=== PATIENT | female | born 1955 | race Caucasian/White ===

== ENCOUNTER 2020-07-22 08:35 | Day surgery (SDC) | payer OTHER ==
--- OUTSIDE RECORDS SUMMARY | 2020-07-22 08:39 | XMS REPORT | Clinical Summary ---
:[address] [facility] Address [address] [place] [address] Care Team Providers Name Role Phone Pcp Primary Care Provider Unavailable Allergies No Known Allergies Medications Medication Sig Dispensed Refills Start Date End Date Status calcium carbonate Take 1 tablet by 0 Active (TUMS) 500 mg chewable mouth daily. tablet aspirin/acetaminophen/ Take by mouth. 0 Active caffeine (EXCEDRIN MIGRAINE ORAL)Indications: 3 x weekly Active Problems Not on file Encounters Date Type Specialty Care Team Description 07/16/2020 Telephone Transplant Lin Metcalf Results Citlalli Duarte RN 06/29/2020 Office Visit Transplant Desire Villa Transplant do carlos Coleman MD evaluation (Primary Lin Metcalf Dx) Citlalli Duarte RN 06/29/2020 Orders Only Transplant Hepatology Desire Villa Collazo splant donor MD Jared evaluation 06/24/2020 Telephone Transplant Lin Metcalf Kidney Transpla nt Citlalli Duarte RN Donor Pre-eval uation 11/07/2019 Telephone Transplant Georgie Jon Kidney T ransplant Donor Pre-evalu ation (Donor called t o ask about her refer ral, let her know th e recipient needs to be listed before insurance will approve her evaluation. ) 10/24/2019 Abstract Transplant Georgie Jon after 07/22/2019 Family History Medical History Relation Name Comments Heart disease Brother Cancer Father liver Cirrhosis Father Diabetes Father Hypertension Father Coronary artery disease Maternal Grandfather s/p ACB Hypertension Mother Cancer Paternal Grandfather lung Cancer Paternal Grandmother breast Relation Name Status Comments Brother Father Maternal Grandfather Mother Paternal Grandfather Paternal Grandmother Social History Tobacco Use Types Packs/Day Years Used Date Never Smoker Smokeless Tobacco: Never Used Alcohol Use Drinks/Week oz/Week Comments Yes occasional Sex Assigned at Date Recorded Not on file Last Filed Vital Signs Vital Sign Reading Time Taken Comments Blood Pressure 127/89 06/29/2020 3:28 PM CDT Pulse 97 06/29/2020 3:28 PM CDT Temperature - - Respiratory Rate 16 06/29/2020 3:28 PM CDT Oxygen Saturation - - Inhaled Oxygen Concentration - - Weight 80.6 kg (177 lb 11.2 oz) 06/29/2020 3:28 PM CDT Height 158.6 cm (5' 2.44") 06/29/2020 3:28 PM CDT Body Mass Index 32.04 06/29/2020 3:28 PM CDT Plan of Treatment Health Maintenance Due Date Last Done Comments BREAST CANCER SCREENING 1955 COLON CANCER SCREENING COLONOSCOPY 1955 CERVICAL CANCER SCREENING PAP ONLY (Age 21-65) 1976 LIPID PANEL 2000 INFLUENZA VACCINE (#1) 2020 Procedures Procedure Name Priority Date/Time Associated Comments Diagnosis HLA TYPING CI Routine 06/29/2020 7:01 Transplant donor Result s for this AM CDT evaluation procedure are i n the results section. HLA TYPING CII Routine 06/29/2020 7:01 Transplant donor Resul ts for this AM CDT evaluation procedure are i n the results section. MICROALBUMIN, RANDOM Routine 06/29/2020 7:01 Transplant donor Results for this URINE AM CDT evaluation procedure are i n the results section. PROTEIN, RANDOM URINE Routine 06/29/2020 7:01 Transplant dono r Results for this AM CDT evaluation procedure are i n the results section. CREATININE, RANDOM Routine 06/29/2020 7:01 Transplant donor R esults for this URINE AM CDT evaluation procedure are i n the results section. URINE CULTURE Routine 06/29/2020 7:01 Transplant donor Result s for this AM CDT evaluation procedure are i n the results section. CBC W/PLT COUNT & Routine 06/29/2020 7:00 Transplant donor Re sults for this AUTO DIFFERENTIAL AM CDT evaluation procedure are in the results section. BLOOD TYPING, Routine 06/29/2020 7:00 Transplant donor Result s for this AUTOMATED AM CDT evaluation procedure are i n the results section. HEPATIC FUNCTION Routine 06/29/2020 7:00 Transplant donor Res ults for this PANEL AM CDT evaluation procedure are i n the results section. HEMOGLOBIN A1C Routine 06/29/2020 7:00 Transplant donor Resul ts for this AM CDT evaluation procedure are i n the results section. CBC W/PLT COUNT & Routine 06/29/2020 7:00 Transplant donor Re sults for this AUTO DIFFERENTIAL AM CDT evaluation procedure are in the results section. BASIC METABOLIC PANEL Routine 06/29/2020 7:00 Transplant dono r Results for this (7) AM CDT evaluation procedure are i n the results section. after 07/22/2019 Results HLA TYPING CII (06/29/2020 7:01 AM CDT) Pathologist Sig nature HLA-DR AG1 4 [facility] HLA-DR AG2 11 [facility] HLA-DR AG3-2 52 [facility] HLA-DR AG4-1 53 [facility] TEST[facility] HLA-DQA1 AG 1-1 03 [facility] TEST[facility] HLA-DQA1 AG 1-2 05 [facility] TEST[facility] HLA-DQB1 AG 1-1 8 [facility] TEST[facility] HLA-DQB1 AG 1-2 7 [facility] TEST[facility] HLA-DPA1 AG 1-1 01 [facility] TEST[facility] HLA-DPA1 AG 1-2 01 [facility] HLA-DPB1 AG 1-1 04:01 [facility] TEST[facility] HLA-DPB1 AG 1-2 04:02/105: [facility] TEST[facility] Specimen Blood Performing Organization Address City/[facility] Phone Number [facility] HLA TEST[facility] ONE [facility] [employer], [place]: [place] [address] [id number], CLIA#[id number] CAP#[id number] [id number] HLA TYPING CI (06/29/2020 7:01 AM CDT) Pathologist [facility] nature HLA-A AG1 3 [facility] TEST[facility] HLA-A AG2 11 [facility] TESTING HLA-B AG1 27 [facility] HLA TESTING HLA-B AG2 51 [facility] HLA TESTING HLA-C AG1 2 [facility] HLA TESTING HLA-C AG2 14 [facility] TEST[facility] HLA-B BW1 4 [facility] HLA TESTING HLA-B BW2 4 [facility] TEST[facility] Specimen Blood Performing Organization Address City/[facility] Centercode Phone Number [facility] HLA TESTING ONE [facility] [place], [place]: [place] [address] [id number], CLIA#[id number] CAP#[id number] UNOS#[id number] Microalbumin, random urine (06/29/2020 7:01 AM CDT) Pathologist Sig nature Microalbumin, Urine <0.5 mg/dL [facility] Specimen Urine Narrative Performed At Reference Range: No Normals [facility] Administrative Processor ID - LEONIDES Trejo Performing Organization Address [facility]/Zipcode Phone Number [address] [address] CENTER Protein, random urine (06/29/2020 7:01 AM CDT) Pathologist Sig nature Protein, Urine <7 0 - 14 mg/dL [facility] Specimen Urine Narrative Performed At Administrative Processor ID - LEONIDES Neil [facility] ICAL [place] Performing Organization Address [facility] Centerconm Phone Number [address] [address] [place] Creatinine, random urine (06/29/2020 7:01 AM CDT) Pathologist Sig nature Creatinine, Ur 32.0 mg/dL [facility] [place] Specimen Urine Narrative Performed At Reference Range: No Normals [facility] Administrative Processor ID - LEONIDES Trejo Performing Organization Address [facility] [place] Phone Number [address] [address] [place] Urine culture (06/29/2020 7:01 AM CDT) Pathologist Sig nature Result See comment [facility] Specimen Urine - Urine (substance) Narrative Performed At <10,000 col/mL gram negative rods [facility] >100,000 col/mL skin ricky Performing Organization Address [facility] Centerconm Phone Number [address] [address] CENTER CBC with platelet count + automated diff (06/29/2020 7:00 AM CDT) Pathologist Sig nature WBC 5.7 3.5 - 10.5 [facility] K/L [facility] RBC 4.98 3.93 - 5.22 [facility] M/L [facility] Hemoglobin 14.7 11.2 - 15.7 [facility] GM/DL [facility] Hematocrit 45.7 (H) 34.1 - 44.9 % [facility] MCV 91.8 79.4 - 94.8 fL [facility] MCH 29.5 25.6 - 32.2 pg [facility] MCHC 32.2 32.2 - 35.5 [facility] GM/DL [facility] RDW 13.0 11.7 - 14.4 % [facility] Platelets 266 150 - 450 K/CU [facility] MPV 9.0 (L) 9.4 - 12.3 fL [facility] nRBC 0 0 - 0 /100 WBC [facility] % Neutros 63 % [facility] % Lymphs 25 % [facility] % Monos 8 % [facility] % Eos 3 % [facility] % Baso 1 % [facility] # Neutros 3.55 1.56 - 6.13 [facility] # Lymphs 1.43 1.18 - 3.74 [facility] # Monos 0.47 (H) 0.24 - 0.36 [facility] # Eos 0.14 0.04 - 0.36 [facility] # Baso 0.05 0.01 - 0.08 [facility] Immature 0 0 - 1 % [facility] Granulocytes-Relative [facility] Specimen Blood Performing Organization Address City/State/Zipcode Phone Number [facility] [address] [address] [place] Blood typing, automated (06/29/2020 7:00 AM CDT) Pathologist Sig nature ABO/RH AUTOMATED A POSITIVE [facility] Specimen Blood Performing Organization Address City/[facility] Centercode Phone Number [address] [address] Hemoglobin A1c (06/29/2020 7:00 AM CDT) Pathologist Sig nature Hemoglobin A1C 5.4 4.3 - 6.1 % [facility] Specimen Blood Performing Organization Address [facility] Centercon[facility] Phone Number [address] [address] [place] Hepatic function panel (06/29/2020 7:00 AM CDT) Pathologist Sig nature Protein, Total 7.4 6.0 - 8.3 gm/dL [facility] Albumin 4.4 3.5 - 5.0 g/dL [facility] Total Bilirubin 0.9 0.2 - 1.2 mg/dL [facility] Bilirubin, Direct 0.3 0.1 - 0.5 mg/dL [facility] Alkaline Phosphatase 80 40 - 150 U/L [facility] AST 16 5 - 34 U/L [facility] ALT 15 6 - 55 U/L [facility] Specimen Blood Narrative Performed At Administrative Processor ID - LEONIDES Trejo [facility] Performing Organization Address City/[facility]/Zipcode Phone Number [address] [address] CENTER Basic Metabolic Panel (06/29/2020 7:00 AM CDT) Sodium 140 136 - 145 meq/L [facility] Potassium 3.6 3.5 - 5.1 meq/L [facility] Chloride 104 98 - 107 meq/L [facility] CO2 27 22 - 29 meq/L [facility] BUN 9 7 - 21 mg/dL [facility] Creatinine 0.71 0.57 - 1.25 [facility] mg/dL [facility] Glucose 92 70 - 105 mg/dL [facility] Calcium 8.9 8.4 - 10.2 [facility] mg/dL [facility] EGFR 83Comment: ESTIMATED mL/min/1.73 sq [facility] GFR IS NOT m [facility] [place] CREATININE CLEARANCE IN PREDICTING GLOMERULAR FILTRATION RATE. ESTIMATED GFR IS NOT APPLICABLE FOR DIALYSIS PATIENTS. Specimen Blood Narrative Performed At Administrative Processor ID - LEONIDES Trejo [facility] Performing Organization Address City/State/Zipcode Phone Number [facility] [address] [place], [place] [id number] CENTER after 07/22/2019 Insurance Payer Benefit Plan / Subscriber ID Effective Dates Phone Addre ss Type Group BLUE BCBS OS [id number] 2020-Pres [phone] [address] PPO CROSS/BLUE POS/PPO/EPO ent 2 [facility] [id number] Guarantor Name Account Type Relation to Date of Phone Billing Patient Address [place] Personal/Family Recipient 07/16/1968 [address] (Home) CASSIA HERNANDEZ [phone] [place], [place] (Work) [phone]
--- OUTSIDE RECORDS SUMMARY | 2020-07-22 08:40 | XMS REPORT | Continuity of Care Document ---
:1955 Author Organization [facility] Address [address] [place] [address] [address] [place] [address] Care Team Providers Name Role Phone Pcp Primary Care Physician Unavailable Citlalli Metcalf RN Attending Clinician Unavailable Jared Villa MD Attending Clinician JARED VILLA Attending Clinician Unavailable Viviana Jon Attending Clinician Unavailable Payers Payer Name Policy Type Policy Effective Date Expiration Date Sour ce Number BLUE CROSS/BLUE [id number] 2020 [facility] OS 00:00:00 - Medical POS/PPO/EPOxxxxxx [place] [id number], [place] [address]TAE Problems This patient has no known problems. Allergies, Adverse Reactions, Alerts This patient has no known allergies or adverse reactions. Family History Family Member Diagnosis Comments Start Date Stop Date Source Natural brother Heart disease [facility] Natural father Cancer [facility] Natural father Cirrhosis [facility] Natural father Diabetes [facility] Natural father Hypertension [facility] Maternal grandfather Coronary artery [facility] Natural mother Hypertension [facility] Paternal grandfather Cancer [facility] Paternal grandmother Cancer [facility] Social History Social Habit Start Date Stop Date Quantity Comments Source Sex Assigned At [facility] Tobacco use and 2020-07-02 2020-07-02 Never used [facility] - exposure 00:00:00 00:00:00 [facility] Center Alcohol intake 2020-07-02 2020-07-02 [facility] (finding) [facility] Alcohol Comment 2020-07-02 2020-07-[address] [facility] - 00:00:00 00:00:00 [facility] Center Smoking Status Start Date Stop Date Source Never smoker [facility] edical [place] Medications Ordered Filled Start Stop Current Ordering Indication Dosage Frequency Signature Comments Components Source Medication Medication Date Date Medication? Clinician (SIG) Name Name calcium 2019-09 Yes 1{tbl} QD Take 1 [facility] carbonate 0-29 tablet [facility] - (TUMS) 500 11:11: mouth Medica l mg chewable 39 daily. [place] tablet aspirin/michel 2019-09 Yes Take by [facility] taminophen/ 0-29 mouth. [facility] - caffeine 11:11: Medical (EXCEDRIN 39 Center MIGRAINE ORAL) Vital Signs Vital Name Observation Time Observation Value Comments Source Systolic blood 2020-06-29 15:28:00 127 mm[Hg] [facility] Diastolic blood 2020-06-29 15:28:00 89 mm[Hg] [facility] Heart rate 2020-06-29 15:28:00 97 /min [facility] Respiratory rate 2020-06-29 15:28:00 16 /min [facility] Body height 2020-06-29 15:28:00 158.6 cm [facility] Body weight 2020-06-29 15:28:00 80.604 kg [facility] BMI 2020-06-29 15:28:00 32.04 kg/m2 [facility] Procedures Procedure Date / Time Performed Performing Clinician Souryuriy e URINE CULTURE 2020-06-29 07:01:00 Desire Villa [facility] CREATININE, RANDOM URINE 2020-06-29 07:01:00 Desire Villa [facility] PROTEIN, RANDOM URINE 2020-06-29 07:01:00 Des[facility] MICROALBUMIN, RANDOM 2020-06-29 07:01:00 Desire Villa [facility] HLA TYPING I 2020-06-29 07:01:00 Desire Villa [facility] HLA TYPING CI 2020-06-29 07:01:00 [facility] BASIC METABOLIC PANEL 2020-06-29 07:00:[address] [facility] ([address] [place] [address] HEMOGLOBIN A1C 2020-06-29 07:00[facility]00 [facility] HEPATIC FUNCTION PANEL 2020-06-29 07:00:00 [facility] BLOOD TYPING, AUTOMATED 2020-06-29 07:00:00 [facility] CBC W/PLT COUNT & AUTO 2020-06-29 07:00:00 [facility] Plan of Care Planned Activity Planned Date Details Comments Source Future Scheduled 2020-05-05 INFLUENZA VACCINE [facility] 00:[facility]:00 (#1) [code = [facility] INFLUENZA VACCINE (#1)] Future Scheduled [address] [facility] Test 00:00:00 (procedure) [code = [facility] 55354988] Future Scheduled [address] [facility] - Test 00:00:00 malignant neoplasm Medical C enter of cervix (procedure) [code = 450189045] Future Scheduled [address] [facility] - Test 00:00:00 malignant neoplasm Medical C enter of breast (procedure) [code = 793072241] Future Scheduled [address] [facility] - Test 00:00:00 malignant neoplasm Medical C enter of colon (procedure) [code = 720699873] Results Test Description Test Time Test Comments Results Result Comments Source HLA TYPING [facility] 2020-07-06 22:41:00 Test Item Value Reference Range Interpretation Comme nts HLA-DR AG1 (test code = 3469) 4 HLA-DR AG2 (test code = 9552) 11 HLA-DR AG3-2 (test code = 3239) 52 HLA-DR AG4-1 (test code = 3240) 53 HLA-DQA1 AG 1-1 (test code = 3463) 3 HLA-DQA1 AG 1-2 (test code = 3464) 5 HLA-DQB1 AG 1-1 (test code = 3244) 8 HLA-DQB1 AG 1-2 (test code = 3245) 7 HLA-DPA1 AG 1-1 (test code = 3246) 1 HLA-DPA1 AG 1-2 (test code = 3247) 1 HLA-DPB1 AG 1-1 (test code = 3248) 04:01 HLA-DPB1 AG 1-2 (test code = 3249) 04:02105: [facility] [id number] 22:40:00 Test Item Value Reference Range Interpretation Comments HLA-A AG1 (test code = 3466) 3 HLA-A AG2 (test code = 3467) 11 HLA-B AG1 (test code = 3468) 27 HLA-B AG2 (test code = 3469) 51 HLA-C AG1 (test code = 3470) 2 HLA-C AG2 (test code = 3471) 14 HLA-B BW1 (test code = 3234) 4 HLA-B BW2 (test code = 3235) 4 [facility] [id number] 09:26:00 Test Item Value Reference Range Interpretation Comments Result (test code = See comment 6463-4) SUELLEN (test code = SUELLEN) <10,000 col/mL gram negative rods>100,000 col/mL skin ricky [facility] [id number] 09:26:00 Test Item Value Reference Range Interpretation Comments CULTURE (BEAKER) (test code = See comment 1095) <10,000 col/mL gram negative rods>100,000 col/mL skin floraHemoglobin A1c 2020-06-29 10:58:00 Test Item Value Reference Range Interpretation Comments Hemoglobin A1C (test code = 4548-4) 5.4 % 4.3-6.1 Lab Interpretation (test code = Normal 56148-4) [facility] [id number] 10:58:00 Test Item Value Reference Range Interpretation Comments HEMOGLOBIN A1C (BEAKER) (test code = 5.4 % 4.3-6.1 368) Protein, random [id number] 09:26:00 Test Item Value Reference Range Interpretation Comments Protein, Urine (test code <7 0-14 = 2888-6) SUELLEN (test code = SUELLEN) Barrel Builder ID Andrey Trejo Lab Interpretation (test Normal code = 36224-7) [facility], random [id number] 09:26:00 Test Item Value Reference Range Interpretation Comments Microalbumin, <0.5 mg/dL Urine (test code = 92249-1) SUELLEN (test code = Reference Range: No SUELLEN) NormalsOperator ID - LEONIDES [facility] [id number] 09:26:00 Test Item Value Reference Range Interpretation Comments PROTEIN, URINE (BEAKER) (test code = < mg/dL 0-14 1569) Barrel Builder ID - LEONIDES CMICROALBUMIN, RANDOM [id number] 09:26:00 Test Item Value Reference Range Interpretation Comments MICROALBUMIN URINE (BEAKER) (test < mg/dL code = 1794) Reference Range: No NormalsOperator ID - LEONIDES CCreatinine, random [id number] 09:23:00 Test Item Value Reference Range Interpretation Comments Creatinine, Ur 32.0 mg/dL (test code = 2161-8) SUELLEN (test code = Reference Range: No SUELLEN) NormalsOperator ID - LEONIDES Trejo [facility] RANDOM [id number] 09:23:00 Test Item Value Reference Range Interpretation Comments CREATININE URINE (BEAKER) (test 32.0 mg/dL code = 375) Reference Range: No NormalsOperator ID - LEONIDES CBasic Metabolic [id number] 09:01:00 Test Item Value Reference Range Interpretation Comments Sodium (test code = 140 meq/L 062-098 7698-2) Potassium (test 3.6 meq/L 3.5-5.1 code = 2823-3) Chloride (test code 104 meq/L 98-107 = 2075-0) CO2 (test code = 27 meq/L 22-29 8-9) BUN (test code = 9 mg/dL 7-21 3094-0) Creatinine (test 0.71 mg/dL 0.57-1.25 code = 2160-0) Glucose (test code 92 mg/dL 70-105 = 2345-7) Calcium (test code 8.9 mg/dL 8.4-10.2 = 80032-7) EGFR (test code = 83 mL/min/1.73 [place] [address]-7) NOT ACCURATE CREATININE CLEARANCE IN PREDICTING GLOMERULAR FILTRATION RATE . ESTIMATED GFR I S NOT APPLICABLE FOR DIALYSIS PATIEN SUELLEN (test code = Barrel Builder ID - SUELLEN) LEONIDES Trejo [facility] function [id number] 09:01:00 Test Item Value Reference Range Interpretation Comments Protein, Total (test code 7.4 6.0- 8.3 gm/dL = 2885-2) Albumin (test code = 4.4 g/dL 3.5-5 21393-8) Total Bilirubin (test code 0.9 mg/dL 0.2-1.2 = 1975-2) Bilirubin, Direct (test 0.3 mg/dL 0.1-0.5 code = 1967-7) Alkaline Phosphatase (test 80 U/L 40-150 code = 6768-6) AST (test code = 1920-8) 16 U/L 5-34 ALT (test code = 1742-6) 15 U/L 6-55 SUELLEN (test code = SUELLEN) Barrel Builder ID - LEONIDES Yuriy Lab Interpretation (test Normal code = 90930-7) [facility] MET[facility]OLIC [id number] 09:01:00 Test Item Value Reference Range Interpretation Comments SODIUM (BEAKER) 140 meq/L 136-145 (test code = 381) POTASSIUM (BEAKER) 3.6 meq/L 3.5-5.1 (test code = 379) CHLORIDE (BEAKER) 104 meq/L 98-107 (test code = 382) CO2 (BEAKER) (test 27 meq/L 22-29 code = 355) BLOOD UREA NITROGEN 9 mg/dL 7-21 (BEAKER) (test code = 354) CREATININE (BEAKER) 0.71 mg/dL 0.57-1.25 (test code = 358) GLUCOSE RANDOM 92 mg/dL 70-105 (BEAKER) (test code = 652) CALCIUM (BEAKER) 8.9 mg/dL 8.4-10.2 (test code = 697) EGFR (BEAKER) (test 83 mL/min/1.73 ESTIMA MAYURI GFR IS code = 1092) sq m NOT ACCURATE CREATININE CLEARANCE IN PREDICTING GLOMERULAR FILTRATION RATE . ESTIMATED GFR I S NOT APPLICABLE FOR DIALYSIS PATIEN TS. Barrel Builder ID - LEONIDES CHEPATIC FUNCTION [id number] 09:01:00 Test Item Value Reference Range Interpretation Comments TOTAL PROTEIN (BEAKER) (test code = 7.4 gm/dL 6.0-8.3 770) ALBUMIN (BEAKER) (test code = 1145) 4.4 g/dL 3.5-5.0 BILIRUBIN TOTAL (BEAKER) (test code 0.9 mg/dL 0.2-1.2 = 377) BILIRUBIN DIRECT (BEAKER) (test 0.3 mg/dL 0.1-0.5 code = 706) ALKALINE PHOSPHATASE (BEAKER) (test 80 U/L 40-150 code = 346) AST (SGOT) (BEAKER) (test code = 16 U/L 5-34 353) ALT (SGPT) (BEAKER) (test code = 15 U/L 6-55 347) Barrel Builder ID - LEONIDES CCBC with platelet count + automated [id number] 08:58:00 Test Item Value Reference Range Interpretation Comments WBC (test code = 6690-2) 5.7 3.5- 10.5 K/L RBC (test code = 789-8) 4.98 3.93- 5.22 M/L MCHC (test code = 786-4) 32.2 32.2- 35.5 GM/DL Hematocrit (test code = 4544-3) 45.7 % 34.1-44.9 H MCV (test code = 787-2) 91.8 fL 79.4-94.8 MCH (test code = 785-6) 29.5 pg 25.6-32.2 RDW (test code = 788-0) 13.0 % 11.7-14.4 Platelets (test code = 777-3) 266 150- 450 K/CU MM MPV (test code = 99833-2) 9.0 fL 9.4-12.3 L nRBC (test code = 413) 0 0- 0 /100 WBC % Neutros (test code = 429) 63 % % Lymphs (test code = 430) 25 % % Monos (test code = 431) 8 % % Eos (test code = 432) 3 % % Baso (test code = 437) 1 % # Neutros (test code = 670) 3.55 1.56- 6.13 K/L # Lymphs (test code = 414) 1.43 1.18- 3.74 K/L # Monos (test code = 415) 0.47 0.24- 0.36 K/L H # Eos (test code = 416) 0.14 0.04- 0.36 K/L # Baso (test code = 417) 0.05 0.01- 0.08 K/L Immature Granulocytes-Relative 0 % 0-1 (test code = 2801) Lab Interpretation (test code = Abnormal 89995-4) [facility] W/PLT COUNT & AUTO [id number] 08:58:00 Test Item Value Reference Range Interpretation Comments WHITE BLOOD CELL COUNT (BEAKER) 5.7 K/ L 3.5-10.5 (test code = 775) RED BLOOD CELL COUNT (BEAKER) 4.98 M/ L 3.93-5.22 (test code = 761) HEMOGLOBIN (BEAKER) (test code = 14.7 GM/DL 11.2-15.7 410) HEMATOCRIT (BEAKER) (test code = 45.7 % 34.1-44.9 H 411) MEAN CORPUSCULAR VOLUME (BEAKER) 91.8 fL 79.4-94.8 (test code = 753) MEAN CORPUSCULAR HEMOGLOBIN 29.5 pg 25.6-32.2 (BEAKER) (test code = 751) MEAN CORPUSCULAR HEMOGLOBIN CONC 32.2 GM/DL 32.2-35.5 (BEAKER) (test code = 752) RED CELL DISTRIBUTION WIDTH 13.0 % 11.7-14.4 (BEAKER) (test code = 412) PLATELET COUNT (BEAKER) (test 266 K/CU MM 150-450 code = 756) MEAN PLATELET VOLUME (BEAKER) 9.0 fL 9.4-12.3 L (test code = 754) NUCLEATED RED BLOOD CELLS 0 /100 WBC 0-0 (BEAKER) (test code = 413) NEUTROPHILS RELATIVE PERCENT 63 % (BEAKER) (test code = 429) LYMPHOCYTES RELATIVE PERCENT 25 % (BEAKER) (test code = 430) MONOCYTES RELATIVE PERCENT 8 % (BEAKER) (test code = 431) EOSINOPHILS RELATIVE PERCENT 3 % (BEAKER) (test code = 432) BASOPHILS RELATIVE PERCENT 1 % (BEAKER) (test code = 437) NEUTROPHILS ABSOLUTE COUNT 3.55 K/ L 1.56-6.13 (BEAKER) (test code = 670) LYMPHOCYTES ABSOLUTE COUNT 1.43 K/ L 1.18-3.74 (BEAKER) (test code = 414) MONOCYTES ABSOLUTE COUNT (BEAKER) 0.47 K/ L 0.24-0.36 H (test code = 415) EOSINOPHILS ABSOLUTE COUNT 0.14 K/ L 0.04-0.36 (BEAKER) (test code = 416) BASOPHILS ABSOLUTE COUNT (BEAKER) 0.05 K/ L 0.01-0.08 (test code = 417) IMMATURE GRANULOCYTES-RELATIVE 0 % 0-1 PERCENT (BEAKER) (test code = 2801) Blood typing, [id number] 08:39:00 Test Item Value Reference Range Interpretation Comments ABO/RH AUTOMATED (BEAKER) (test A POSITIVE code = 2260) [facility]
[2020-07-22] MEDS ORDERED: Ringers Lactate 1,000 ML IV ONE (09:13)
[2020-07-22] MEDS ORDERED: propofoL 200 MG/20 ML VIAL IV ONE ×2 (12:06)
[2020-07-22] MEDS ORDERED: LIDOCAINE 1% MPF 5 ML VIAL ONE (12:06)
[2020-07-22] MEDS ORDERED: GLYCOPYRROLATE 0.2 MG/ML SYR ONE (12:06)
--- NOTE | 2020-07-22 13:03 | ENDO RPT ---
[address], [address] EGD PROCEDURE REPORT EXAM DATE: 07/22/2020 PATIENT NAME: Sheila Albert MR#: [id number] BIRTHDATE: 1955 ATTENDING: Marlon Alvarenga DR STATUS: outpatient CLERK CASHIER: Jared Mendez and Ashley Del Real RN INDICATIONS: The patient is a 64 yr old Female here for an EGD due to abdominal pain, dyspepsia, dysphagia, epigastric pain, and GERD PROCEDURE PERFORMED: EGD with biopsy for H. pylori MEDICATIONS: Per Anesthesia. TOPICAL ANESTHETIC: none CONSENT: The patient understands the risks and benefits of the procedure and understands that these risks include, but are not limited to: sedation, allergic reaction, infection, perforation and/or bleeding. Alternative means of evaluation and treatment include, among others: physical exam, x-rays, and/or surgical intervention. The patient elects to proceed with this endoscopic procedure. DESCRIPTION OF PROCEDURE: During intra-op preparation period all mechanical medical equipment was checked for proper function. Hand hygiene and appropriate measures for infection prevention was taken. Procedure, possible complications, and alternatives including but not limited to the possibility of bleeding, perforation, tear, infection, sepsis, need for surgery, need for blood transfusion, and anesthesia related complications were explained to the patient. After the risks, benefits and alternatives of the procedure were thoroughly explained, Informed consent was verified, confirmed and timeout was successfully executed by the treatment team. The patient was placed in the left lateral position. The patient was anesthetized with topical anesthesia. Through the anesthetized oropharyngeal area, the scope was passed without any difficulty. The EC-[id number] ([id number]) and Pentax [id number] ([id number]) endoscope was introduced through the mouth and advanced to the second portion of the duodenum. Retroflexed views revealed a moderate sized hiatal hernia. The gastroscope was then slowly withdrawn and removed. Multiple erosions were found in the antrum. A biopsy for H. pylori was taken. LA Class A esophagitis was found in the lower esophagus. A biopsy for H. pylori was taken. Mild Atrophic gastritis was found in the body and the antrum of the stomach. A biopsy for H. pylori was taken. A moderate sized hiatal hernia was found ADVERSE EVENTS: There were no complications. IMPRESSIONS: 1. Multiple erosions were found in the antrum 2. LA Class A esophagitis was found in the lower esophagus 3. Mild Atrophic gastritis was found in the body and the antrum of the stomach 4. A moderate sized hiatal hernia was found RECOMMENDATIONS: 1. acid suppression therapy 2. anti-reflux regimen 3. await biopsy results 4. follow-up: office 2 week(s) 5. avoid NSAIDS 6. follow-up of helicobacter pylori status, treat if indicated 7. begin feeding tomorrow 8. follow-up of helicobacter pylori status, treat if indicated REPEAT EXAM: Marlon Alvarenga DR eSigned: Marlon Alvarenga DR 07/22/2020 1:03 PM cc: CPT CODES: ICD9 CODES: PATIENT NAME: Sheila Albert MR#: [id number]
--- NOTE | 2020-07-22 13:06 | ENDO RPT ---
[address], [address] COLONOSCOPY PROCEDURE REPORT EXAM DATE: 07/22/2020 PATIENT NAME: Sheila Albert MR #: [id number] BIRTHDATE: 1955 ATTENDING: Marlon Alvarenga DR STATUS: outpatient COMMUNITY PROGRAM ASSISTANT: Jared Mendez and Ashley Del Real RN INDICATIONS: The patient is a 64 yr old Female here for a colonoscopy due to colon cancer screening PROCEDURE PERFORMED: Colonoscopy with biopsy - cold polypectomy MEDICATIONS: Per Anesthesia. ESTIMATED BLOOD LOSS: None CONSENT: The patient understands the risks and benefits of the procedure and understands that these risks include, but are not limited to: sedation, allergic reaction, infection, perforation and/or bleeding. Alternative means of evaluation and treatment include, among others: physical exam, x-rays, and/or surgical intervention. The patient elects to proceed with this endoscopic procedure. DESCRIPTION OF PROCEDURE: During intra-op preparation period all mechanical medical equipment was checked for proper function. Hand hygiene and appropriate measures for infection prevention was taken. Procedure, possible complications, alternatives including, but not limited to possibility of bleeding, perforation, tear, infection, sepsis, need for surgery, need for blood transfusion, were explained to the patient. After the risks, benefits and alternatives of the procedure were thoroughly explained, Informed consent was verified, confirmed and timeout was successfully executed by the treatment team. The patient was placed in the left lateral position. A digital rectal exam was performed and revealed internal hemorrhoids. After appropriate level of anesthesia, the scope was passed. The EC-[id number] ([id number]) endoscope was introduced through the anus and advanced to the cecum, which was identified by both the appendix and ileocecal valve. The quality of the prep was fair. The instrument was then slowly withdrawn as the colon was fully examined. Scope withdrawal time was 9 minutes. COLON FINDINGS: A small smooth sessile polyp with a mucous cap was found in the descending colon. A polypectomy was performed with cold forceps. The resection was complete, the polyp tissue was completely retrieved and sent to histology. Retroflexed views revealed no abnormalities. The scope was then completely withdrawn from the patient and the procedure terminated. ADVERSE EVENTS: There were no complications. IMPRESSIONS: 1. Small sessile polyp was found in the descending colon; polypectomy was performed in a piecemeal fashion with cold forceps 2. Internal hemorrhoids RECOMMENDATIONS: 1. avoid NSAIDS 2. avoid NSAIDS for 2 weeks 3. await biopsy results 4. fiber rich diet 5. follow-up: office 2 week(s) 6. See EGD report. 7. Monitor for any evidence of rectal bleeding. 8. increase dietary water 9. hemorrhoidal hygiene 10. yearly hemoccult starting in 4 years 11. yearly hemoquant RECALL: for Colonoscopy, pending biopsy results. Marlon Alvarenga DR eSigned: Marlon Alvarenga DR 07/22/2020 1:06 PM cc: CPT CODES: ICD9 CODES: PATIENT NAME: Sheila Albert MR#: [id number]
[2020-07-22 16:20] VITALS: TEMP 97; O2SAT 100
[2020-07-22 16:23] VITALS: BP 113/76
== END 2020-07-22 13:44 | disposition home or self-care (01) ==
LOC: OR 08:35
PROVIDERS: ATTEND Surgery
PROC: 0DB68ZX Excision of Stomach, Via Natural or Artificial Opening Endoscopic, Diagnostic (ICD-10-PCS; 2020-07-22)
PROC: 0DBM8ZX Excision of Descending Colon, Via Natural or Artificial Opening Endoscopic, Diagnostic (ICD-10-PCS; 2020-07-22)
PROC: 0DB98ZX Excision of Duodenum, Via Natural or Artificial Opening Endoscopic, Diagnostic (ICD-10-PCS; 2020-07-22)
PROC: 0DB38ZX Excision of Lower Esophagus, Via Natural or Artificial Opening Endoscopic, Diagnostic (ICD-10-PCS; principal; 2020-07-22 10:30)
PROC: 0DB78ZX Excision of Stomach, Pylorus, Via Natural or Artificial Opening Endoscopic, Diagnostic (ICD-10-PCS; 2020-07-22 10:30)
DX: R13.10 Dysphagia, unspecified (principal); K29.70 Gastritis, unspecified, without bleeding; K21.00 Gastro-esophageal reflux disease with esophagitis, without bleeding; D12.4 Benign neoplasm of descending colon; Z20.828 Contact with and (suspected) exposure to other viral communicable diseases; K64.9 Unspecified hemorrhoids; K44.9 Diaphragmatic hernia without obstruction or gangrene
CPT/HCPCS: 88312; 88305 ×3; 43239; 45380; U0002; J2704 ×2; J7120

== ENCOUNTER 2022-08-22 09:36 | Observation (INO) | payer MEDICARE ==
[2022-08-17 13:42] LABS: Specific Gravity 1.011 (1.005-1.030); Urine Bilirubin NEGATIVE (Negative); Urine Blood Negative (Negative); Urine Clarity Clear (Clear); Urine Color Colorless (Yellow); Urine Glucose NEGATIVE (Negative); Urine Protein NEGATIVE (Negative); Urine Urobilinogen Normal (Normal)
[2022-08-17 13:45] LABS: Absolute Lymphocytes (CBC) 1.4 K/uL (0.7-4.9); Hematocrit 38.8 % (36.0-45.0); Lymphocytes % 23.6 % (15.3-44.8); MCV 90.5 fL (80-100); MPV 6.8 fL (7.6-11.3); RBC Red Blood Cell Count 4.28 M/uL (3.86-4.86)
[2022-08-17 13:49] LABS: Protime INR 0.95
[2022-08-17 13:57] LABS: Potassium 3.4 mmol/L (3.5-5.1)
[2022-08-22] MEDS ORDERED: Ringers Lactate 1,000 ML IV ONE ×3 (09:54→16:31)
[2022-08-22 10:18] LABS: SARS-CoV-2 Antigen Rapid Res Negative (Negative)
[2022-08-22] MEDS ORDERED: LIDOCAINE 2% MPF 5 ML VIAL ONE (11:25)
[2022-08-22] MEDS ORDERED: KETAMINE HCL 500 MG/5 ML VIAL ONE (11:25)
[2022-08-22] MEDS ORDERED: NS 0.9% VIAL 20 ML ONE (11:25)
[2022-08-22] MEDS ORDERED: propofoL 200 MG/20 ML VIAL IV ONE (11:25)
[2022-08-22] MEDS ORDERED: MIDAZOLAM HCL 2 MG/2 ML INJ ONE (11:25)
[2022-08-22] MEDS ORDERED: dexAMETHasone 10 MG/ML VIAL ONE (11:25)
[2022-08-22] MEDS ORDERED: ROCURONIUM 50 MG/5 ML VIAL IV ONE (11:25)
[2022-08-22] MEDS ORDERED: FENTANYL CITR 250 MCG/5 ML ONE (11:25)
[2022-08-22] MEDS ORDERED: ONDANSETRON 4 MG/2 ML VIAL ONE ×2 (11:26→17:09)
[2022-08-22] MEDS ORDERED: NA CHLORIDE 0.9% 100 ML IV ONE (11:40)
[2022-08-22] MEDS: BUPIVACAINE 0.25% PF 30 ML VIAL ONE ×2 (11:46→13:00)
[2022-08-22] MEDS: CEFAZOLIN SODIUM 2 GM/VIAL ONE ×2 (11:46→12:45)
[2022-08-22] MEDS: VASOPRESSIN 20 UNIT/ML VIAL ONE ×2 (11:47→16:05)
[2022-08-22] MEDS ORDERED: CEFAZOLIN SODIUM 1 GM/VIAL ONE (12:00)
[2022-08-22] MEDS ORDERED: SCOPOLAMINE HYDROBROMIDE PATCH TD ONE (12:24)
[2022-08-22] MEDS: Ringers Lactate 1,000 ML IV ONE ×2 (14:07→14:10)
[2022-08-22] MEDS ORDERED: FENTANYL CITR 100 MCG/2 ML ONE (15:45)
[2022-08-22] MEDS ORDERED: GLYCOPYRROLATE 0.2 MG/ML SYR ONE (15:53)
[2022-08-22] MEDS ORDERED: Mastisol Adhesive Liq ONE (16:02)
[2022-08-22] MEDS ORDERED: HYDROCODONE/APAP 5/325 MG TAB PO PRN (16:42)
[2022-08-22] MEDS ORDERED: PROMETHAZINE INJ 25 MG/ML AMP IV PRN (16:42)
[2022-08-22] MEDS ORDERED: MORPHINE 2 MG/ML SYR IV PRN (16:42)
--- NOTE | 2022-08-22 16:48 | P.BOP ---
Preoperative diagnosis: stage2 uterovaginal prolapse KALINA Postoperative diagnosis: same and rectocele Primary procedure: TLH BSO USLS colpopexy, cystoscopy Urethral bulking with Bulkamid .5ml Accounting Director: Emily Navarrete Estimated blood loss: 50 Specimen: uterus ovaries and tubes Findings: -/-09/08//-/-/-3 Anesthesia: General Complications: None Drain(s): Urinary catheter Implants: Bulkamid Transferred to: Recovery Room Condition: Good
--- OUTSIDE RECORDS SUMMARY | 2022-08-22 16:58 | XMS REPORT | Continuity of Care Document ---
:1955 Author Organization [facility] t Address [address] [place] [address] [address]. Fig[address] [place] [address] Care Team Providers Name Role Phone Nicholas Andres MD, James Primary Care Physician [phone] DERIAN NÚÑEZ Attending Clinician Unavailable Luc Helton MD Attending Clinician ECSAR ROJAS Attending Clinician Unavailable Payers Payer Name Policy Type Policy Number Effective Date Expiration Date [facility] [email or web address] [id number] 2021 (MEDICARE 00:00:00 REPLACEMENT HMO) POS - BCBS [id number] CVCP-BCBS [id number] BCBS OS POS/PPO/EPO [id number] 2020 00:00:00 Problems Condition Condition Condition Status Onset Resolution Last Treating Co mments Source Name Details Category Date Date Treatment Clinician Date No known No known Disease Metho di active active st problems problems Hospit a l Allergies, Adverse Reactions, Alerts Allergy Allergy Status Severity Reaction(s) Onset Inactive Treating Comm ents Source Name Type Date Date Clinician NO KNOWN Allergy Active [facility] Family History Family Member Diagnosis Comments Start Date Stop Date Source Natural father Liver cancer [facility] Natural father Cancer [facility] Natural father Cirrhosis [facility] Natural father Diabetes [facility] Natural father Hypertension [facility] Family member Colon cancer [facility] Family member Colon polyps [facility] Family member Esophageal cancer Meth [facility] Family member Stomach cancer [facility] Natural brother Heart disease [facility] Maternal Coronary artery [facility] grandfather disease Medical Cent[facility] r Natural mother Hypertension [facility] Paternal Cancer [facility] grandfather [facility] Paternal Cancer [facility] grandmother [facility] Cent[facility] Social History Social Habit Start Date Stop Date Quantity Comments Source History SDOH [facility] Alcohol Frequency [facility] Center History SDOH [facility] Alcohol Std Drinks [facility] History SDOH [facility] Alcohol Binge Medical [address] Alcohol intake 2020-11-23 2020-11-23 [facility] 00:00:00 00:00:00 Tobacco use and 2020-07-02 2020-07-[address] [facility] exposure 00:00:00 00:00:00 Medical Center History SDOH 2020-07-02 2020-07-[address] [facility] Alcohol Comment 00:00:00 00:00:00 Medical C enter Sex Ass[birth year] [facility] 00:00:00 00:00:00 Smoking Status Start Date Stop Date Source Never smoker [facility] Medicine Medications Ordered Filled Start Stop Current Ordering Indication Dosage Frequency Signature Comments Components Source Medication Medication Date Date Medication? Clinician (SIG) Name Name calcium Yes 1{tbl} QD Chew 1 Method i carbonate 3-[address] (TUMS) 200 13:56: daily. Hospi ta mg calcium 29 l (500 mg) chewable tablet aspirin-anibal Yes 1{tbl} Q6H Take 1 Me thodi taminophen- 3-[address] caffeine 13:56: mouth Hospita (EXCEDRIN 22 every 6 l MIGRAINE) (six) 250-250-65 hours as mg per needed. tablet omeprazole Yes 40mg QD Take 1 Metho di (PriLOSEC) 3-[address] 40 MG 00:00: (40 mg Hospita capsule 00 total) by l mouth daily. Aspirin-Anibal 2019-09 Yes Take by [facility] taminophen- 2-16 mouth. Colleg e Caffeine 20:08: of (EXCEDRIN 51 Medicin MIGRAINE e OR) omeprazole 2019-09 Yes 40mg Take 40 mg B aylor (PRILOSEC) 2-16 by mouth Colle ge 40 MG 20:08: daily. of capsule 51 Medicin e Calcium 2019-09 Yes Take by [facility] Carbonate 2-[address] Antacid 20:08: of (TUMS OR) 51 Medicin e sucralfate 2019-09 Yes 1g Q.25D Take [address] (CARAFATE) 1-20 by mouth 4 Felice es 1 gram 10:33: (four) Medical tablet 22 times Center daily. omeprazole 2019-09 Yes 40mg Take [address] (PriLOSEC) 1-20 by mouth 2 Felice es 40 MG 10:33: (two) Medical capsule 21 times Center daily with breakfast and dinner. calcium 2019-09 Yes 1{tbl} QD Take [address] carbonate 0-29 tablet by [facility] (TUMS) 500 11:11: mouth Medica l mg chewable 39 daily. Center tablet aspirin/anibal 2019-09 Yes Take by [facility] taminophen/ 0-29 mouth. [facility] caffeine 11:11: Medical (EXCEDRIN 39 Center MIGRAINE ORAL) Vital Signs Vital Name Observation Time Observation Value Comments Source Systolic blood 2020-08-19 20:01:00 124 mm[Hg] [facility] pressure Medicine Diastolic blood 2020-08-19 20:01:00 83 mm[Hg] [facility] Heart rate 2020-08-19 20:01:00 102 /min [facility] Body temperature 2020-08-19 20:01:00 35.56 Odette [facility] Respiratory rate 2020-08-19 20:01:00 18 /min [facility] Body height 2020-08-19 20:01:00 162.6 cm [facility] Body weight 2020-08-19 20:01:00 79.379 kg [facility] BMI 2020-08-19 20:01:00 30.04 kg/m2 [facility] Systolic blood 2020-08-19 20:01:00 124 mm[Hg] [facility] pressure Medicine Diastolic blood 2020-08-19 20:01:00 83 mm[Hg] [facility] Medicine Heart rate 2020-08-19 20:01:00 102 /min [facility] Body temperature 2020-08-19 20:01:00 35.56 Odette [facility] Respiratory rate 2020-08-19 20:01:00 18 /min [facility] Body height 2020-08-19 20:01:00 162.6 cm [facility] Body weight 2020-08-19 20:01:00 79.379 kg [facility] BMI 2020-08-19 20:01:00 30.04 kg/m2 [facility] HEIGHT 2020-08-14 08:27:00 158.6 cm WEIGHT 2020-08-14 08:27:00 79.425 kg HEIGHT 2020-06-29 15:28:00 158.6 cm WEIGHT 2020-06-29 15:28:00 80.604 kg Procedures This patient has no known procedures. Plan of Care Planned Activity Planned Date Details Comments Source Future Scheduled 2022-08-19 COVID-19 VACCINE (#1) [facility] Test 10:40:28 [code = COVID-19 VACCINE (#1)] Future Scheduled 2022-08-[address] [facility] Test 10:40:28 (procedure) [code = 364672026] Future Scheduled 2022-08-19 BREAST CANCER [facility] Test 10:40:28 SCREENING [code = BREAST CANCER SCREENING] Future Scheduled 2022-08-[address] [facility] Test 10:40:28 [code = COLONOSCOPY SCREENING] Future Scheduled 2022-08-19 SHINGLES VACCINES (1 [facility] Test 10:40:28 of 2) [code = SHINGLES VACCINES (1 of 2)] Future Scheduled 2022-08-19 65+ [facility]OCCAL [facility] Test 10:40:28 VACCINE (1 - PCV) [code = 65+ PNEUMOCOCCAL VACCINE (1 - PCV)] Future Scheduled 2022-08-19 INFLUENZA VACCINE [facility] Test 10:40:28 [code = INFLUENZA VACCINE] Future Scheduled 2022-05-05 INFLUENZA VACCINE (#1) [facility] Test 00:00:00 [code = INFLUENZA Medical Ce nter VACCINE (#1)] Future Scheduled 2021-09-[address] [facility] Test 00:00:00 (12+) [code = Medical Center DEPRESSION SCREENING (12+)] Future Scheduled 2021-09-04 FALLS RISK SCREENING [facility] Test 00:00:00 [code = FALLS RISK Medical C enter SCREENING] Future Scheduled 2021-08-[address] [facility] Test 00:00:00 Counseling and Medical Cente r Screening (12+) [code = Tobacco Cessation Counseling and Screening (12+)] Future Scheduled 2020 PNEUMOCOCCAL 65+ YRS [facility] Test 00:00:00 (1 - PCV) [code = Medical Ce nter PNEUMOCOCCAL 65+ YRS (1 - PCV)] Future Scheduled 2005 SHINGLES VACCINES ([address] [facility] Test 00:00:00 of 2) [code = SHINGLES Medic al Center VACCINES (1 of 2)] Future Scheduled 1974 DTAP/TDAP/TD VACCINES [facility] Test 00:00:00 (1 - Tdap) [code = Medical C enter DTAP/TDAP/TD VACCINES (1 - Tdap)] Future Scheduled 1956-01-30 COVID-19 VACCINE (#1) [facility] Test 00:00:00 [code = COVID-[address] VACCINE (#1)] Future Scheduled [address] [facility] Test 00:00:00 malignant neoplasm of Medica l Center breast (procedure) [code = 255401512] Future Scheduled [address] [facility] Test 00:00:00 (combo) [code = CT Medical C enter Colonography (combo)] Future Scheduled [address] [facility] Test 00:00:00 malignant neoplasm of Medica l Center colon (procedure) [code = 344738924] Future Scheduled [address] [facility] Test 00:00:00 malignant neoplasm of Medica l Center colon (procedure) [code = 407679314] Future Scheduled 1955 DXA SCAN [code = DXA [facility] Test 00:00:00 SCAN] [facility] Future Scheduled [address] [facility] Test 00:00:00 malignant neoplasm of Medica l Center colon (procedure) [code = 143554302] Future Scheduled [address] [facility] Test 00:00:00 malignant neoplasm of Medica l Center colon (procedure) [code = 674165615] Future Scheduled 1955 Sigmoidoscopy [code = [facility] Test 00:00:00 Sigmoidoscopy] Medical Cente r Future Scheduled COLON CANCER [facility] of Test SCREENING: COLONOSCOPY Medic ine [code = COLON CANCER SCREENING: COLONOSCOPY] Future Scheduled MAMMOGRAM ANNUAL [code B [facility] of Test = MAMMOGRAM ANNUAL] Medicine Future Scheduled TETANUS SHOT (ADULT) [facility] of Test [code = TETANUS SHOT Medicin e (ADULT)] Future Scheduled BMI FOLLOW UP PLAN [facility] of Test [code = BMI FOLLOW UP Medici ne PLAN] Future Scheduled ZOSTER VACCINE (1 of [facility] of Test 2) [code = ZOSTER Medicine VACCINE (1 of 2)] Future Scheduled FLU VACCINE > 6 MONTHS B [facility] Test [code = FLU VACCINE > Medici ne 6 MONTHS] Future Scheduled FALL SCREEN [code = [facility] of Test FALL SCREEN] Medicine Future Scheduled OSTEOPOROSIS SCREENING B [facility] Test [code = OSTEOPOROSIS Medicin e SCREENING] Future Scheduled PNEUMOVAX >=65 [facility] of Test (PPSV23) [code = Medicine PNEUMOVAX >=65 (PPSV23)] Encounters Start End Encounter Admission Attending Care Care Encounter Source Date/Time Date/Time Type Type Clinicians Facility Department ID 2022-03-18 2022-03-18 Outpatient [facility] [id number] [facility] 06:07:00 06:07:00 0715 Medica l Group 2021-07-16 2021-07-16 [facility] [id number] [facility] 11:00:00 11:00:00 1112 Medica l Group 2020-11-23 2020-11-23 Outpatient [facility] [id number] [place] 00:00:00 00:00:[address] DERIAN [address] 2020-08-19 2020-08-19 Office Link, [facility] [id number] [facility] 13:39:44 14:09:44 Visit Luc Ward AMBULATOR 350.1.13.21 College Y 0.2.7.2.686 of [id number] Medi [place] 300 e 2020-08-19 2020-08-19 Office Link, [facility] [id number] 13:39:44 14:09:44 Visit Luc Ward AMBULATOR 350.1.13.21 Y 0.2.7.2.686 [id number] 300 2020-08-19 2020-08-19 Outpatient [facility], [facility] [id number] [facility] 00:00:00 00:00:00 CESAR 2020-08-14 2020-08-14 Outpatient [facility], [facility] [id number] [facility] 00:00:00 00:00:00 CESAR 2020-08-14 2020-08-14 Outpatient EL [facility] [id number] [facility] 00:00:00 00:00:00 2020-08-14 2020-08-14 Outpatient [facility], [facility] [id number] [facility] 00:00:00 00:00:00 CESAR 2020-08-14 2020-08-14 Outpatient [facility]ON, [facility] [id number] [facility] 00:00:00 00:00:00 CESAR 2020-08-14 2020-08-14 Outpatient [facility], [facility] [id number] [facility] 00:00:00 00:00:00 CESAR 2020-08-14 2020-08-14 Outpatient EL OBERTON, [facility] [id number] [facility] 00:00:00 00:00:00 CESAR 2020-08-14 2020-08-14 Outpatient [facility]H [facility] [id number] [facility] 00:00:00 00:00:00 2020-08-12 2020-08-12 Outpatient OBERTON, [facility] [id number] [facility] 00:00:00 00:00:00 CESAR 2020-08-07 2020-08-07 Outpatient EL [facility] [id number] [facility] 00:00:00 00:00:00 2020-08-07 2020-08-07 Outpatient OBERTON, [facility] [id number] [facility] 00:00:00 00:00:00 CESAR 2020-08-07 2020-08-07 Outpatient OBERTON, [facility] [id number] [facility] 00:00:00 00:00:00 CESAR 2020-08-07 2020-08-07 Outpatient EL OBERTON, [facility] [id number] [facility] 00:00:00 00:00:00 [place] 2020-08-07 2020-08-07 Outpatient CRYSTAL, [facility] [id number] SLE 00:00:00 00:00:00 [place] 2020-08-07 2020-08-07 Outpatient [facility] [id number] SLE 00:00:00 00:00:00 2020-08-07 2020-08-07 Outpatient EL CRYSTAL, [facility] [id number] SLE 00:00:00 00:00:00 [place] 2020-06-29 2020-06-29 Outpatient [facility] [id number] SLE 00:00:00 00:00:00 2020-06-29 2020-06-29 Outpatient [facility] [id number] SLE 00:00:00 00:00:00 Results Test Test Test Comments Results Result Source Description Time Comments CT, CTA ABDOMEN 2020-08- CTA of abdomen and 16 pelvis with and 15:49:00 without contrast to [facility] visually display the [facility] aorta, renal CENTERName: PARESH, arteries, iliac, and BRET MAY : kidneys to be able to 1955 Sex: follow in the OR F during donor nephrectomy. Please Addendum describe venous BeginsREPORT STATUS:A anatomy of both kidneys in all cases. ADDENDUM:Right Please measure kidneyMaximal length: distance from aorta 10.8 cm.Artery: Single. to renal artery Bifurcates 3.8 cm from bifurcation. If pt is its origin.Vein: allergic to iodine, Single. Measures 0.8 cm follow protocol prior at the IVC confluence. to testing. Please Left kidneyMaximal provide 3-D length: 11.4 cm.Artery: reconstruction.Locati Single. Bifurcates 3.4 on: For [place] cm from its Only->[facility] Medical origin.Vein: Single, Center conventional anatomy. Hospitalpotential Measures 0.9 cm at the living donor for IVC confluence. Signed: kidney transplant Darren Ramirez MDRiqraort Verified Date/Time: 08/19/2020 15:49:31 Reading Location: [facility] P048 Angio Body Reading RoomAddendum EndsFINAL REPORT EXAM: CTA of the abdomen and pelvis with intravenous contrast HISTORY: Unlisted Reason for Exam COMPARISON: None TECHNIQUE: Abdomen and pelvis were scanned utilizing a multidetector helical scanner. Scan was performed per department protocol. DOSE REDUCTION: The examination was performed according to the departmental dose-optimization program, which includes automated exposure control, adjustment of the mA and/or kV according to patient size and/or use of iterative reconstruction technique. FINDINGS:VASCULATURE:Mi nimal calcific as described diseaseAbdominal aorta: Aortic hiatus 2.5 cm, Celiac artery origin 2.3 cm, Left renal artery origin 1.8 cm, Infrarenal 1.5 cm, Bifurcation 1.4 cmVisualized proximal iliac arteries: Patent. ADDITIONAL FINDINGS:Small sliding hiatal hernia. Cholecystectomy. Nonspecific ottoniel mesentery with shotty lymphadenopathy centered at the mesenteric veins. Scattered bony degenerative changes. IMPRESSION: 1.No acute intra-abdominal abnormality.2.Nonspecif ic ottoniel mesentery as described above. Signed: Darrne Ramirez MDReport Verified Date/Time: 08/16/2020 09:26:53 Reading Location: [facility] [id number] Consult Reading Room 2020-08- Location: For [place] IMAGING, MULTI, 16 Only->potential PHARM, SPECT 14:17:00 living donor for [facility]3] kidney transplant [facility] JANUARY : 1955 Sex: F FINAL REPORT PROCEDURE: MYOCARDIAL PERFUSION SPECT IMAGING (Rest/Stress)CPT CODE: 48826 INDICATION: Evaluation for renal transplantation, donor CARDIOVASCULAR PROFILE:CAD History: NoneSymptoms: Chest painRisk Factors: ObesityBMI: 32Medications: None STRESS PROTOCOL:Pharmacologic stress was achieved with a 10-second intravenous infusion of regadenoson 0.4 mg. The radiopharmaceutical was administered 30 seconds after the start of the regadenoson infusion. IMAGING PROTOCOL:10.8 mCi of Tc-99m sestamibi was injected intravenously at rest, and gated SPECT images were obtained. Then, 31 mCi of Tc-99m sestamibi was injected intravenously at peak stress, and gated SPECT images were obtained. Image quality is good. REST FINDINGS:HR: 85/minBP: 136/80 mmHgPrelim. EKG: Normal sinus rhythm.Perfusion: Normal.Wall Motion: Normal (LVEF greater than 70%).LV Volume: Normal.RV Volume: Normal. STRESS FINDINGS:HR: 122/min (78% of MPHR)BP: 147/85 mmHgPrelim. EKG: No ischemic changes.Symptoms: Dyspnea (treatment not required).Perfusion: Normal.Wall Motion: Normal (LVEF greater than 70%).LV Volume: Not significantly changed from rest. IMPRESSION:1. Normal study.2. Normal myocardial perfusion. 3. Normal resting LVEF, which does not deteriorate with stress.4. Normal extracardiac tracer distribution.5. There is no prior study for comparison. Signed: Jose Roberto Hatch MDReport Verified Date/Time: 08/19/2020 14:17:54 Reading Location: [address] Reading Room T SPOT TB 2020-08-17 10:14:00 Test Item Value Reference Range Interpretation Comme nts T-SPOT TB (BEAKER) (test code = 1683) Negative NEG CONTROL SPOT COUNT (lifeIOAKER) (test code = 1684) 0 PANEL A SPOT (BEAKER) (test code = 1685) 0 PANEL B SPOT (BEAKER) (test code = 1686) [address] (BEAKER) (test code = 1687) 0 SCAN RESULT (test code = 7316841) URINE [id number] 12:32:00 Test Item Value Reference Range Interpretation Comments CULTURE (BEAKER) (test ESCHERICHIA COLI A 2 0-29,000 col/mL code = 1095) Escherichia col i Amikacin (test code = S 1) Ampicillin + Sulbactam S (test code = 6) Aztreonam (test code = S 32) Cefepime (test code = S 51) Cefoxitin (test code = S 68) Ceftazidime (test code S = 27) Ceftriaxone (test code S = 52) Ertapenem (test code = S 38) Gentamicin (test code S = 18) Levofloxacin (test S code = 22) Meropenem (test code = S 34) Nitrofurantoin (test S code = 23) Tetracycline (test S code = 2) Tobramycin (test code S = 25) Trimethoprim + R Sulfamethoxazole (test code = 47) 80-89,000 col/mL skin floraHEPATITIS C PCR, [id number] 00:01:00 Test Item Value Reference Range Interpretation Comments HCV RESULT COMPONENT HCV RNA not detected HCV RNA not detected (BEAKER) (test code = 2699) This test uses a Real-Time Polymerase Chain Reaction (RT-PCR) methodology and was performed using LEYDA Ampliprep/LEYDA TaqMan HCV test kit version 2.0 ([employer]).Reportable range for this assay is 15 - 100,000,000 IU per mL (1.18 - 8.00 Log IU/mL).MICROALBUMIN, 24 HOUR [id number] 18:31:00 Test Item Value Reference Range Interpretation Comments VOLUME, TOTAL (BEAKER) (test code 3100 ml = 1457) MICROALBUMIN URINE (BEAKER) (test < mg/dL code = 1794) MICROALBUMIN 24 HOUR URINE < mg/24 hrs 0-30 (BEAKER) (test code = 623) Oval Or Circular Glass Cutter ID - DBCREATININE [id number] 18:31:00 Test Item Value Reference Range Interpretation Comments CREATININE CLEARANCE (BEAKER) 95.9 mL/min 70.0-140.0 (test code = 357) VOLUME, TOTAL (BEAKER) (test code 3100 ml = 1457) CREATININE URINE (BEAKER) (test 33.7 mg/dL code = 375) Oval Or Circular Glass Cutter ID - DBPROTEIN, 24 HOUR [id number] 18:31:00 Test Item Value Reference Range Interpretation Comments PROTEIN, 24HR URINE (BEAKER) (test < mg/24hr 0-300 code = 1570) VOLUME, TOTAL (BEAKER) (test code = 3100 ml 1457) PROTEIN, URINE (BEAKER) (test code < mg/dL 0-14 = 1569) Oval Or Circular Glass Cutter ID - [id number] 15:07:00 Test Item Value Reference Range Interpretation Comments RPR SCREEN (BEAKER) (test code = Nonreactive Nonreactive 420) CYTOMEGALOVIRUS ANTIBODY, [id number] 13:19:00 Test Item Value Reference Range Interpretation Comments CYTOMEGALOVIRUS, IGG (BEAKER) Positive Negative, Equivocal A (test code = 3429) CMV IgG Result Interpretation: </= 0.8 Al Negative 0.9-1.0 Al Equivocal >/=1.1 Al PositiveCYTOMEGALOVIRUS ANTIBODY, [id number] 13:19:00 Test Item Value Reference Range Interpretation Comments CYTOMEGALOVIRUS IGM ANTIBODY Negative Negative, Equivocal (BEAKER) (test code = 3437) CMV IgM Result Interpretation: </= 0.8 Al Negative 0.9-1.0 Al Equivocal >/= 1.1 Al PositiveEBV ANTIBODY, [id number] 13:19:00 Test Item Value Reference Range Interpretation Comments IRWIN BOWEN VIRAL CAPSID Positive Negative, Equivocal A ANTIGEN IGG (BEAKER) (test code = 3415) Irwin Bowen Viral Capsid Antigen IgG Result Interpretation: </= 0.8 Al Negative 0.9-1.0 Al Equivocal >/= 1.1 Al PositiveEBV ANTIBODY, [id number] 13:19:00 Test Item Value Reference Range Interpretation Comments IRWIN BOWEN VIRAL CAPSID Negative Negative, Equivocal ANTIGEN IGM (BEAKER) (test code = 3418) Irwin Bowen Viral Capsid Antigen IgM Result Interpretation: </= 0.8 Al Negative 0.9-1.0 Al Equivocal >/= 1.1 Al PositiveRAD, CHEST, 2 VIEWS 2020-08-14 13:07:00Reason for Exam:->Potential living donor for kidney transplantLocation: For [place] Only->[facility] : 1955 Sex: FFINAL REPORT INDICATION: Potential living donor for kidney transplant COMPARISON: None TECHNIQUE: Frontal and lateral views of the chest. FINDINGS: Lungs and pleura: Clear lungs. No effusion.Heart and mediastinum: Normal heart size. Unremarkable mediastinal contours.Osseous structures: Noacute abnormality.Additional findings: None. IMPRESSION: No acute intrathoracic abnormality. Signed:JR Kaplan Robert MDReport Verified Date/Time: 08/14/2020 13:07:59 Reading Location: [facility] Reading Room ALYSIS W/ [id number] 09:58:00 Test Item Value Reference Range Interpretation Comments COLOR (BEAKER) (test code = 470) Yellow CLARITY (BEAKER) (test code = 469) Clear SPECIFIC GRAVITY UA (BEAKER) (test 1.022 1.001-1.035 code = 468) PH UA (BEAKER) (test code = 467) 7.0 5.0-8.0 PROTEIN UA (BEAKER) (test code = 20 mg/dL Negative A 464) GLUCOSE UA (BEAKER) (test code = Negative Negative 365) KETONES UA (BEAKER) (test code = Negative Negative 371) BILIRUBIN UA (BEAKER) (test code = Negative Negative 462) BLOOD UA (BEAKER) (test code = 461) Negative Negative NITRITE UA (BEAKER) (test code = Negative Negative 465) LEUKOCYTE ESTERASE UA (BEAKER) Large Negative A (test code = 466) UROBILINOGEN UA (BEAKER) (test code 0.2 mg/dL 0.2-1.0 = 463) RBC UA (BEAKER) (test code = 519) 2 /HPF WBC UA (BEAKER) (test code = 520) 13 /HPF MUCUS (BEAKER) (test code = 1574) Rare SQUAMOUS EPITHELIAL (BEAKER) (test 2 /HPF code = 516) SOURCE(BEAKER) (test code = 2795) Oval Or Circular Glass Cutter ID - [auto]Oval Or Circular Glass Cutter ID - techHEPATITIS B SURFACE [id number] 09:21:00 Test Item Value Reference Range Interpretation Comments HEPATITIS B SURFACE ANTIBODY < mIU/mL <8.0 (BEAKER) (test code = 647) Oval Or Circular Glass Cutter ID - SEP CTSH/FREE T4 IF [id number] 08:55:00 Test Item Value Reference Range Interpretation Comments THYROID STIMULATING HORMONE 2.983 uIU/mL 0.350-4.940 (BEAKER) (test code = 772) Oval Or Circular Glass Cutter ID - SEP CHEPATITIS B SURFACE [id number] 08:54:00 Test Item Value Reference Range Interpretation Comments HEPATITIS B SURFACE ANTIGEN (2) Nonreactive Nonreactive (BEAKER) (test code = 2585) Specimen is considered negative for HBsAg.HEPATITIS B CORE ANTIBODY, IGM 2020-08-14 08:54:00 Test Item Value Reference Range Interpretation Comments HEPATITIS B CORE IGM ANTIBODY Nonreactive Nonreactive (BEAKER) (test code = 645) Oval Or Circular Glass Cutter ID - SEP CHEPATITIS C [id number] 08:54:00 Test Item Value Reference Range Interpretation Comments HEPATITIS C ANTIBODY (BEAKER) Nonreactive Nonreactive (test code = 367) Oval Or Circular Glass Cutter ID - SEP CHIV-1 ANTIGEN WITH HIV-1/2 [id number] 08:54:00 Test Item Value Reference Range Interpretation Comments HIV-1 ANTIGEN WITH HIV 1\T\2 Nonreactive Nonreactive ANTIBODY (2) (BEAKER) (test code = 2586) Oval Or Circular Glass Cutter ID - SEP CGAMMA GLUTAMYL TRANSFERASE (GGT)2020-08-14 08:35:00 Test Item Value Reference Range Interpretation Comments GAMMA GLUTAMYL TRANSFERASE (BEAKER) 163 U/L 9-64 H (test code = 364) Oval Or Circular Glass Cutter ID - LEONIDES CLACTATE DEHYDROGENASE (LDH)2020-08-14 08:35:00 Test Item Value Reference Range Interpretation Comments LACTATE DEHYDROGENASE (BEAKER) (test 303 U/L 125-220 H code = 635) Oval Or Circular Glass Cutter ID - LEONIDES CLIPID [id number] 08:34:00 Test Item Value Reference Range Interpretation Comments TRIGLYCERIDES (BEAKER) (test code = 249 mg/dL 540) CHOLESTEROL (BEAKER) (test code = 218 mg/dL 631) HDL CHOLESTEROL (BEAKER) (test code 45 mg/dL = 976) LDL CHOLESTEROL CALCULATED (BEAKER) 123 mg/dL (test code = 633) Triglyceride Reference Range: Low Risk <150 Borderline 150-199 High Risk 200- 499 Very High Risk >=500Cholesterol Reference Range: Low Risk <200 Borderline 200-239 High Risk >240HDL Cholesterol Reference Range: Low Risk >=60 High Risk <40LDL Cholesterol Reference Range: Optimal <100 Near Optimal 100-129 Borderline 130-159 High 160-189 Very High >=190 Oval Or Circular Glass Cutter ID - LEONIDES [id number] 08:34:00 Test Item Value Reference Range Interpretation Comments MAGNESIUM (BEAKER) (test code = 2.3 mg/dL 1.6-2.6 627) Oval Or Circular Glass Cutter ID - LEONIDES [id number] 08:34:00 Test Item Value Reference Range Interpretation Comments PHOSPHORUS (BEAKER) (test code = 3.2 mg/dL 2.3-4.7 604) Oval Or Circular Glass Cutter ID - LEONIDES CURIC [id number] 08:34:00 Test Item Value Reference Range Interpretation Comments URIC ACID (BEAKER) (test code = 4.3 mg/dL 2.6-7.2 773) Oval Or Circular Glass Cutter ID - LEONIDES [id number] 08:34:00 Test Item Value Reference Range Interpretation Comments CREATININE (BEAKER) 0.70 mg/dL 0.57-1.25 (test code = 358) EGFR (BEAKER) (test 84 mL/min/1.73 ESTIMA MAYURI GFR IS code = 1092) sq m NOT ACCURATE CREATININE CLEARANCE IN PREDICTING GLOMERULAR FILTRATION RATE . ESTIMATED GFR I S NOT APPLICABLE FOR DIALYSIS PATIEN TS. Oval Or Circular Glass Cutter ID - LEONIDES [id number] 08:05:00 Test Item Value Reference Range Interpretation Comments PROTIME (BEAKER) (test code = 12.0 seconds 11.9-14.2 759) INR (BEAKER) (test code = 370) 0.92 <=5.90 PARTIAL THROMBOPLASTIN TIME 27.2 seconds 22.5-36.0 (BEAKER) (test code = 760) Effective 01/30/2019: PT Reference Range ChangeNew: 11.9-14.2 Previous: 11.7- 14.7RECOMMENDED COUMADIN/WARFARIN INR THERAPY RANGESSTANDARD DOSE: 2.0-3.0 Includes: PROPHYLAXIS for venous thrombosis, systemic embolization; TREATMENT for venous thrombosis and/or pulmonary embolus.HIGH RISK: Target INR is 2.5-3.5 for patients wiht mechanical heart valves.URINE [id number] 09:26:00 Test Item Value Reference Range Interpretation Comments CULTURE (BEAKER) (test code = See comment 1095) <10,000 col/mL gram negative rods>100,000 col/mL skin floraHEMOGLOBIN A1C 2020-06-29 10:58:00 Test Item Value Reference Range Interpretation Comments HEMOGLOBIN A1C (BEAKER) (test code = 5.4 % 4.3-6.1 368) PROTEIN, RANDOM [id number] 09:26:00 Test Item Value Reference Range Interpretation Comments PROTEIN, URINE (BEAKER) (test code = < mg/dL 0-14 1569) Oval Or Circular Glass Cutter ID - LEONIDES CMICROALBUMIN, RANDOM [id number] 09:26:00 Test Item Value Reference Range Interpretation Comments MICROALBUMIN URINE (BEAKER) (test < mg/dL code = 1794) Reference Range: No NormalsOperator ID - LEONIDES CCREATININE, RANDOM [id number] 09:23:00 Test Item Value Reference Range Interpretation Comments CREATININE URINE (BEAKER) (test 32.0 mg/dL code = 375) Reference Range: No NormalsOperator ID - LEONIDES CBASIC METABOLIC [id number] 09:01:00 Test Item Value Reference Range Interpretation [...] S NOT APPLICABLE FOR DIALYSIS PATIEN TS. Oval Or Circular Glass Cutter ID - LEONIDES CHEPATIC FUNCTION [id number] 09:01:00 Test Item Value Reference Range Interpretation [...] (test code = 15 U/L 6-55 347) Oval Or Circular Glass Cutter ID - LEONIDES CCBC W/PLT COUNT & AUTO [id number] 08:58:00 Test Item Value Reference Range Interpretation [...] % 0-1 PERCENT (BEAKER) (test code = 1361)
[2022-08-22] MEDS ORDERED: ESTRADIOL TOP SCH (17:00)
[2022-08-22] MEDS ORDERED: MEPERIDINE HCL 25 MG/ML SYR ONE (17:09)
[2022-08-22] MEDS ORDERED: PROMETHAZINE INJ 25 MG/ML AMP ONE (17:16)
[2022-08-22] MEDS: HYDROMORPHONE HCL 1 MG/ML INJ ONE ×2 (17:20→17:25)
[2022-08-22] MEDS ORDERED: IBUPROFEN 600 MG TAB PO PRN (17:47)
[2022-08-22] MEDS: Ringers Lactate 1,000 ML IV SCH (18:04)
[2022-08-22 18:25] VITALS: O2SAT 98
[2022-08-22 19:19] LABS: Potassium 3.7 mmol/L (3.5-5.1)
[2022-08-22] MEDS: ATORVASTATIN 10 MG TAB PO SCH ×2 (20:42→21:00)
--- NOTE | 2022-08-23 00:18 | OP ---
Date of Procedure: 08/22/2022 Surgeon: Courtney Olivia MD Vinyl Dipper: Emily Mckee. Preoperative Diagnoses: Stage II uterovaginal prolapse and stress urinary incontinence. Postoperative Diagnoses: Stage II uterovaginal prolapse, stress urinary incontinence, and rectocele. Procedures Performed: Total laparoscopic hysterectomy, bilateral salpingo-oophorectomy, uterosacral ligament suspension colpopexy, cystoscopy, urethral bulking, rectocele repair, and perineorrhaphy. Anesthesia: General endotracheal. Estimated Blood Loss: 50. Urine Output: 400. Specimens: Uterus, ovaries, and tubes. Findings: Pop-Q -1, 0, -1, 5 and 7, -1, -1, -3. No complications. Drains: Urinary catheter 12-Maltese. Implant: Bulkamid 0.5 mL. Disposition: The patient's condition stable. Indications: The patient is a 67-year-old female who presented with vaginal bulge and prolapse sympt oms and also with low back pain and both urinary and fecal incontinence with several accidents. No p elvic pain, but complaining of back pain. On initial presentation, she noticed vaginal bulge after w iping when she had an episode of diarrhea about few months prior to her presentation in March. Small stream of stress incontinence for many years, fecal urgency, and loose stools, these were her main sy mptom. Not very frequently sexually active. Denies any dyspareunia. Then on her exam outpatient, h er Pop-Q was 0+, 2, -3, size moderate, 7, -1, 0, -4. Her cervix was posterior and her levator tone w as low at 3/5. So discussed about pelvic floor physical therapy and addressed her fecal incontinence and stool consistency bowel regimen. She underwent evaluation of her bladder function with aerodyna grupo testing. Transvaginal ultrasound showed a 5 mm stripe, which really in the absence of postmenopa usal bleeding not very relevant, but patient wanted to proceed with a hysterectomy during her repair, so we discussed about the alternatives of uterine preservation and removal surgeries. Discussed abo ut apical suspension with a sacral colpopexy or possible uterosacral suspension or a vaginal prolapse repair as indicated based on her pathology. Also discussed, posterior repair perineorrhaphy, mid ur ethral sling, and cystoscopy. So after the consent was reverified in the preoperative area, she was taken back to the OR. Preoperatively on counseling, the patient had not started the estrogen therapy and reported that she was more worried about her family history of breast cancer. She does not have any personal history of breast cancer. She has had abnormal mammograms for which she needed followu p, which she is late on following up from April which she is recommended to do so immediately. Estr ogen therapy vaginally was not a contraindication and this would not increase her risk given the dosa ge and the benefit of having estrogenized vaginal epithelium during her healing postop. She agreed t o using the estrogen cream, so this was started the week before surgery and she is using this current ly daily and she will be using this 0.5 g daily for 3 months and then will just taper it down to 3 ti mes a week. Procedure In Detail: After informed consent was re-verified with her and her , she was taken back to the OR and placed in supine fashion on the operating table. General anesthesia was given and 2 g of Ancef was given. SCDs were placed. Time-out was done. Abdomen, vulva, vagina, and perineum were prepped and draped in a sterile fashion with ChloraPrep on the abdomen and Betadine on the drew om. García was placed to drain the bladder and attached for retrograde filling. A medium VCare uteri ne manipulator cup was used after inserting the center piece into the uterine cavity. This was attac hed to the vagina and fixed in place. After this, physician then went back to the abdomen and an inf raumbilical incision was made with a scalpel using the open laparoscopy technique. Fascia was incise d and tagged with 0 Vicryl sutures and site of entry was checked after placing 0 Vicryl sutures to ta g the fascial edges. S retractors were placed. Dominique was introduced and after adequate insufflatio n, site of entry was checked. There was a very small piece of small bowel loop that was picked up wi th very superficial entry of the needle through the serosa and this was recognized and the suture car efully removed. No evidence of any significant trauma to the bowel. This was retracted superiorly. This was inspected at other times during the procedure and at the end of the procedure, there was no evidence of any bleeding or any significant injury to the bowel wall that needed any further attenti on. It was well vascularized and the bowel seemed to be unremarkable. This was probably a loop of b owel that was right underneath the fascia and this was easily before retracting it inferior ly. Two 8 ports laterally were placed, 10 suprapubic port was placed, then went through picking of the ep iploica of the sigmoid colon and suturing down with 3-0 Monocryl and bringing it with the Ned-Zachary ason into the left upper quadrant for retraction. Then, the ureters were traced from the pelvic brim to the ureteric tunnel and there was no anatomical distortion. The presacral area was unremarkable; however, the uterosacral ligaments were prominent enough and seemed to be an excellent place for amy ttachment of the vaginal apex. So instead of a sacral colpopexy, plan was to perform a uterosacral l igament suspension colpopexy. So once the ureters were traced in the lower part of the pelvis to the ureteric tunnel and the uterosacral ligaments were well visualized then I went ahead and proceeded w ith the hysterectomy. The peritoneum, lateral and parallel to the IP ligament, was opened up. Then dissection carried to the level of the round ligament. The IP was completely taken down with the Lig aSure, making sure that the ovary was away and the round ligament was taken down and broad ligament o pened up anteriorly to raise the bladder flap and posteriorly the entire broad ligament was taken jean n to the level of the cup, carefully dissecting the posterior peritoneum around the cup until the rody dder was carefully dissected off the anterior vaginal wall. It appeared to be very lax from all the prolapse. Then went ahead and went to the left side. The tube was removed. The utero-ovarian ligam ent was taken down. The round ligament and broad ligament were taken down. The anterior bladder fla p was connected posteriorly. Dissection was carried down to the uterosacral. Vessels were taken jean n with the help of the LigaSure and the cardinal ligaments that were very thin, first on the right si de than on the left and circumferential colpotomy performed with monopolar hook blade. Angles closed with the help of simple 0 Vicryl stitches and retrieving the specimen through the vagina and 2-0 V-L oc in a continuous running fashion and closed in 2 layers. The entire vaginal cuff was hemostatic. Then vaginal retractor was placed through the vagina, Breisky retractor was placed and then dissectio n was carried to separate the bladder from the anterior vaginal wall. At least 2.5 cm of this was di ssected. The entire vaginal length was only 7 cm so this left the last 3.5 cm of the vagina with the bladder 3.5 to 4 cm distal to vagina for the urethra and trigone. Once this was raised all the way to here with sharp dissection using scissors and lifting with the help of [place] grasper and an atr aumatic grasper, then bowel was retracted inferiorly. Once this was done and dissected, the posterio r vaginal wall was dissected as well, pulling the peritoneum down as well as the preperitoneal fat st aying on the vaginal wall that was dissected down. Then, the uterosacral ligaments were picked up wi th the help of a 3-0 Monocryl, first on the right then on the left side. The prominent part was pick ed up in the last 5 cm and then making sure that this was held and clamped, I placed a 0 PDS suture f rom outside and then inside out through the ligament, at least 5 cm proximal to the distal attachment . Then the suture was passed through the posterior vaginal wall and anterior vaginal wall in an imbr icating fashion and held on a clamp coming out through the left side port. Then, another similar sut ure was placed and at least 1.5 cm proximal to it, went ahead and took a suture from lateral to media l. Then the suture was passed through the posterior and anterior vaginal hdez, immediately medial t o the first stitch on the left side and this was also held through the left port. Then the same 3-0 Monocryl was taken away from the uterosacral and placed on the right uterosacral to retract it medial ly then the stitch with 0 PDS was taken first, 5 cm from proximal to the distal attachment and passed on the lateral part of the vaginal cuff closure through the posterior and anterior hdez. Similar s titch 2 cm proximal was placed to the uterosacral ligament from lateral to medial and attached immedi ately medial to this lateral stitch in the right side to both anterior and posterior hdez. All thes e were tied down systematically with the medial one being tied down first and then the lateral one, f irst on the right then on the left. Thorough irrigation and suction were performed. There was excel lent movement of the ureter from the pelvic brim to the ureteric tunnel. No evidence of any electric al, mechanical, or thermal injury to them. The stay sutures were removed on the bowel on the uterosacral ligament. All the pedicles were hemost atic. There was good closure of the vaginal wall. Then on inspection of the vaginal Pop-Q, the apex was -6. The anterior vaginal wall was pulled to -3 and was very straight and so at this point, the placement of the sling would be much more difficult without the sagging being present. Hopefully, th is corrects the position of the urethra. Then I decided to proceed with bulking as the patient was s ymptomatic in the past. Cystoscopy was performed before laparoscopic closure was completed with 17-Maltese sheath, 30-degree l ens normal saline. There was good jets of urine from both ureteric orifices. No evidence of any tra yan to the bladder. The bladder was drained and attached for drainage to the García catheter. Then a fter changing gloves, the fascia at the umbilicus was closed with the help of 0 Vicryl suture. After inspecting the bowel and it was unremarkable, then I went ahead and closed the fascia with a figure- of-eight 0 Vicryl being very careful about the underlying structures and a simple 0 Vicryl stitch in the suprapubic area. All skin incisions were closed with the help of interrupted 3-0 chromic and Tim ri-Strips placed. García was retracted superiorly. Posterior aspect of the distal perineum was picked up with 2 Allis c lamps in the center mid posterior wall. A clamp was placed to hold the vaginal epithelium. A diamon d-shaped incision was made after injecting with 30 mL of dilute vasopressin with a scalpel. Then, th is tissue was excised. The epithelium was excised. The underlying vaginal tissue was . Th en I could see the defect, which was an avulsion from the left lateral aspect distally. This was sut ured with the help of a continuous running 2-0 Vicryl having reattached the perineal body and then va ginal epithelium was closed with slight trimming just to even the edges, may be less than 0.5 cm in t otal. Then continuous running 2-0 Vicryl was used to close the vaginal epithelium and the perineum w as closed with the help of continuous running 2-0 Vicryl as well. Rectal exam was negative. Urethral bulking was the next procedure. With the pediatric cystoscope, after inspecting the bladder and draining it, the urethral bulking scope was taken. The inflow was adjusted to just a nice stron g dribble. Then entering the urethra, after placing the tip of the cystoscope at the internal meatus , the needle was extended 2 cm and pulled back in the mid urethral area, may be 1.5 cm in the mid ur ethra and then injected with Bulkamid 0.2 mL at 4 and 2 o'clock and then another 0.1 mL at 11 o'clock . This seemed to appose the urethral epithelium very well so I stopped at this point. A 12-Maltese c atheter was placed to drain the urine. She was recovered from anesthesia and taken to PACU in stable condition. The family including her , children, and mother were debriefed about her procedur e. She will be admitted overnight, voiding trial in the morning, and discharge home. If she has sig nificant stress urinary incontinence then we will bring her back for a retropubic sling given the way that the anatomy of her anterior vaginal wall is after the colpopexy. JOY/YUN Voice ID: [id number] Report ID: [id number]
[2022-08-23] MEDS: ONDANSETRON 4 MG/2 ML VIAL IV PRN ×2 (00:23→07:52)
[2022-08-23] MEDS: Ringers Lactate 1,000 ML IV SCH (01:00)
[2022-08-23 06:16] LABS: Absolute Lymphocytes (CBC) 0.7 K/uL (0.7-4.9); Hematocrit 34.9 % (36.0-45.0); Lymphocytes % 4.9 % (15.3-44.8); MPV 6.9 fL (7.6-11.3); RBC Red Blood Cell Count 3.88 M/uL (3.86-4.86)
[2022-08-23] MEDS ORDERED: HOME MED 1 EA UNK (Biotin [Biotin] 10,000 MCG Capsule) PO SCH (09:00)
[2022-08-23] MEDS ORDERED: PANTOPRAZOLE 40MG TABLET PO SCH (09:00)
[2022-08-23 12:05] VITALS: BP 114/69; TEMP 97.6
== END 2022-08-23 13:30 | disposition home or self-care (01) ==
LOC: OR 09:36 → 2ND-WC 16:55
PROVIDERS: ADMIT Obstetrics & Gynecology; ATTEND Obstetrics & Gynecology
PROC: 0UT24ZZ Resection of Bilateral Ovaries, Percutaneous Endoscopic Approach (ICD-10-PCS; 2022-08-22)
PROC: 0UT74ZZ Resection of Bilateral Fallopian Tubes, Percutaneous Endoscopic Approach (ICD-10-PCS; 2022-08-22)
PROC: 0USG7ZZ Reposition Vagina, Via Natural or Artificial Opening (ICD-10-PCS; 2022-08-22)
PROC: 0JQC0ZZ Repair Pelvic Region Subcutaneous Tissue and Fascia, Open Approach (ICD-10-PCS; 2022-08-22)
PROC: 0HQ9XZZ Repair Perineum Skin, External Approach (ICD-10-PCS; 2022-08-22)
PROC: 0TVD8ZZ Restriction of Urethra, Via Natural or Artificial Opening Endoscopic (ICD-10-PCS; 2022-08-22)
PROC: 0UT94ZZ Resection of Uterus, Percutaneous Endoscopic Approach (ICD-10-PCS; principal; 2022-08-22 11:30)
DX: N81.2 Incomplete uterovaginal prolapse (principal); N39.3 Stress incontinence (female) (male); N95.2 Postmenopausal atrophic vaginitis; N39.46 Mixed incontinence; M54.59 Other low back pain; N81.84 Pelvic muscle wasting; G40.319 Generalized idiopathic epilepsy and epileptic syndromes, intractable, without status epilepticus; N84.1 Polyp of cervix uteri; N88.8 Other specified noninflammatory disorders of cervix uteri; D25.9 Leiomyoma of uterus, unspecified; Z20.822 Contact with and (suspected) exposure to COVID-19
CPT/HCPCS: 85025 ×2; 80048 ×2; 36415 ×3; 86900; 86850; 85610; 86901; 88307; 85730; 81003; 94010 ×2; 87811; 58571; 57283; 57250; 51715; J2704; J2550; J2001; J2250; J3010 ×2; J1100; J2270; J2175; A4216; J1170; J7120 ×6; J2405 ×4; J0690; L8606; 88305